=== PATIENT | female | born 1985 ===

== ENCOUNTER 2018-12-18 08:48 | Inpatient (IN) ==
[2018-12-18] MEDS ORDERED: FAMOTIDINE 20 MG/2 ML VIAL IV ONE (09:39)
[2018-12-18] MEDS ORDERED: CITRIC ACID/SODIUM CITRATE 30 ML UDCUP PO ONE (09:39)
[2018-12-18] MEDS ORDERED: ceFAZolin 3,000 MG in SYRINGE 1 EACH IV ONE (09:39)
[2018-12-18] MEDS: LACTATED RINGERS 1,000 ML IV SCH ×3 (09:54→16:12)
[2018-12-18 10:01] LABS: Basophils % 0.1 % (0.0-0.8); Eosinophils % 0.2 % (0.00-10.9); Hematocrit 34.9 VOL% (35.7-47.0); Hemoglobin 11.2 GM/DL (12.0-16.0); Immature Granulocytes % 0.9 %; Immature Granulocytes Absolute 0.09 #; Lymphocytes # 1.1 10*3/uL (1.4-4.0); Lymphocytes % 10.8 % (21.3-54.2); Mean Corpuscular HGB Conc 32.1 GM/DL (32-36); Mean Corpuscular Hemoglobin 28 PG (27-34); Mean Corpuscular Volume 85.5 FL (87-102); Mean Platelet Volume 11.2 FL (9.6-12.0); Monocytes # 0.6 10*3/uL (0.11-0.8); Monocytes % 5.4 % (1.7-12.7); Neutrophils # 8.5 10*3/uL (1.4-7.4); Neutrophils % 82.6 % (38.7-73.9); Platelet Count 179 T/CUMM (130-400); Red Blood Count 4.08 MC/CUMM (3.8-5.5); Red Cell Distribution Width 14.9 % (9.3-17.3); White Blood Count 10.2 T/CUMM (4-12)
[2018-12-18] MEDS ORDERED: OXYTOCIN 10 UNIT/ML VIAL IM ONE (10:10)
[2018-12-18] MEDS ORDERED: OXYTOCIN/LR 30 UNIT/1,000 ML BAG IV ONE (10:10)
[2018-12-18 10:22] LABS: Albumin 2.3 G/DL (3.4-5.0); Bilirubin,Total 0.6 MG/DL (0.2-1.0); Calcium 8.5 MG/DL (8.5-10.1); Osmolality,Calculated 272.7 MOS/KG (273-304); Potassium 3.9 MMOL/L (3.5-5.1); Total Protein 7.1 G/DL (6.4-8.3)
[2018-12-18 11:24] LABS: Cord Arterial Blood HCO3 17.3 MMOL/L
[2018-12-18 11:26] LABS: Cord Venous Blood HCO3 20.8 MMOL/L; Cord Venous Blood PCO2 45.7 MMHG; Cord Venous Blood PO2 38.5 MMHG
[2018-12-18 11:36] LABS: Apearance,Urine Slightly Hazy (Clear); Bacteria,Urine Occasional /HPF (Few); Bilirubin,Urine Negative (Negative); Blood, Urine Negative (Negative); Glucose,Urine (UA) Negative (Negative); Ketones,Urine Negative (Negative); Mucus,Urine Occasional /LPF (Occasional); Nitrite,Urine Negative (Negative); Protein,Urine 30 MG/DL; RBC,Urine 7 /HPF (0-4); Squamous Epithelial Cell,Urine Occasional /HPF (0-10); Urine Color Amber (Yellow); Urine Specific Gravity 1.028 (1.001-1.035); WBC,Urine 1 /HPF (0-6)
[2018-12-18] MEDS ORDERED: RHO(D) IMMUNE GLOBULIN 300 MCG SYRINGE IM ONE (11:36)
[2018-12-18] MEDS ORDERED: ACETAMINOPHEN 325 MG TABLET PO PRN (11:36)
[2018-12-18] MEDS ORDERED: OXYTOCIN/LR 20 UNIT/1,000 ML BAG IV ONE (11:36)
[2018-12-18] MEDS ORDERED: ONDANSETRON 4 MG/2 ML VIAL IV PRN (11:36)
[2018-12-18] MEDS ORDERED: MORPHINE 10 MG/10 ML VIAL ONE (11:39)
[2018-12-18] MEDS ORDERED: PHENYLEPHRINE 1 MG/10 ML SYRINGE IV ONE (11:39)
[2018-12-18] MEDS ORDERED: fentaNYL 100 MCG/2 ML VIAL ONE (11:39)
[2018-12-18] MEDS ORDERED: BUPIVACAINE SPINAL 0.75% 2 ML AMP SPINAL ONE (11:39)
[2018-12-18] MEDS: ceFAZolin 1,000 MG in SYRINGE 1 EACH IV SCH (17:45)
[2018-12-18 19:56] LABS: Basophils % 0.1 % (0.0-0.8); Eosinophils % 0.1 % (0.00-10.9); Hematocrit 32.9 VOL% (35.7-47.0); Hemoglobin 10.7 GM/DL (12.0-16.0); Immature Granulocytes % 0.7 %; Immature Granulocytes Absolute 0.08 #; Lymphocytes # 1.5 10*3/uL (1.4-4.0); Lymphocytes % 13.3 % (21.3-54.2); Mean Corpuscular HGB Conc 32.5 GM/DL (32-36); Mean Corpuscular Hemoglobin 28 PG (27-34); Mean Corpuscular Volume 86.1 FL (87-102); Monocytes # 0.6 10*3/uL (0.11-0.8); Monocytes % 5.7 % (1.7-12.7); Neutrophils # 8.9 10*3/uL (1.4-7.4); Neutrophils % 80.1 % (38.7-73.9); Platelet Count 164 T/CUMM (130-400); Red Blood Count 3.82 MC/CUMM (3.8-5.5); Red Cell Distribution Width 14.8 % (9.3-17.3); White Blood Count 11.1 T/CUMM (4-12)
[2018-12-18] MEDS: DOCUSATE SODIUM 100 MG CAPSULE PO SCH (20:56)
[2018-12-19] MEDS: LACTATED RINGERS 1,000 ML IV SCH (00:10)
[2018-12-19] MEDS: ceFAZolin 1,000 MG in SYRINGE 1 EACH IV SCH (02:27)
[2018-12-19 06:48] LABS: Basophils % 0.1 % (0.0-0.8); Eosinophils % 0.1 % (0.00-10.9); Hematocrit 32.3 VOL% (35.7-47.0); Hemoglobin 10.3 GM/DL (12.0-16.0); Immature Granulocytes % 1.1 %; Immature Granulocytes Absolute 0.11 #; Lymphocytes % 9.3 % (21.3-54.2); Mean Corpuscular HGB Conc 31.9 GM/DL (32-36); Mean Corpuscular Hemoglobin 28 PG (27-34); Mean Corpuscular Volume 86.8 FL (87-102); Mean Platelet Volume 11.4 FL (9.6-12.0); Monocytes # 0.5 10*3/uL (0.11-0.8); Monocytes % 4.5 % (1.7-12.7); Neutrophils # 8.8 10*3/uL (1.4-7.4); Neutrophils % 84.9 % (38.7-73.9); Platelet Count 166 T/CUMM (130-400); Red Blood Count 3.72 MC/CUMM (3.8-5.5); Red Cell Distribution Width 15.1 % (9.3-17.3); White Blood Count 10.3 T/CUMM (4-12)
[2018-12-19] MEDS: METOCLOPRAMIDE 10 MG TABLET PO PRN ×2 (09:30→17:15)
[2018-12-19] MEDS: DOCUSATE SODIUM 100 MG CAPSULE PO SCH ×2 (09:30→19:46)
[2018-12-19] MEDS: MAGNESIUM HYDROXIDE SUSP 30 ML UDCUP PO PRN ×2 (09:30→19:45)
[2018-12-19] MEDS: SIMETHICONE CHEW 80 MG TABLET PO PRN (09:30)
[2018-12-19] MEDS: MULTIVITAMIN (PRENATAL) TABLET PO SCH (09:30)
[2018-12-19] MEDS ORDERED: MEPERIDINE 50 MG/1 ML VIAL IV ONE (13:14)
[2018-12-19] MEDS: IBUPROFEN 800 MG TABLET PO PRN (13:24)
[2018-12-20] MEDS: METOCLOPRAMIDE 10 MG TABLET PO PRN (02:01)
[2018-12-20] MEDS: DOCUSATE SODIUM 100 MG CAPSULE PO SCH ×3 (02:09→20:54)
[2018-12-20] MEDS: MAGNESIUM HYDROXIDE SUSP 30 ML UDCUP PO PRN (08:47)
[2018-12-20] MEDS: SIMETHICONE CHEW 80 MG TABLET PO PRN (08:47)
[2018-12-20] MEDS: MULTIVITAMIN (PRENATAL) TABLET PO SCH (08:47)
[2018-12-20] MEDS ORDERED: BISACODYL 10 MG SUPP RECTAL PRN (08:55)
[2018-12-20] MEDS ORDERED: MAGNESIUM CITRATE 300 ML BOTTLE PO ONE (09:52)
[2018-12-20] MEDS: IBUPROFEN 800 MG TABLET PO PRN ×2 (12:37→20:54)
[2018-12-20] MEDS ORDERED: MEASLES/MUMPS/RUBELLA VACCINE 0.5 ML VIAL SUBCUT ONE (18:57)
[2018-12-21 04:05] VITALS: BP 139/81
[2018-12-21] MEDS: MULTIVITAMIN (PRENATAL) TABLET PO SCH (09:57)
[2018-12-21] MEDS: DOCUSATE SODIUM 100 MG CAPSULE PO SCH (09:57)
[2018-12-21] MEDS: IBUPROFEN 800 MG TABLET PO PRN (13:07)
== END 2018-12-21 13:50 | disposition home or self-care (01) | DRG 785 ==
LOC: N.LDOUT 08:48 → N.LD 08:49 → N.OB 14:45 → N.LD 12-20 19:01
PROVIDERS: ADMIT Obstetrics & Gynecology; ATTEND Obstetrics & Gynecology

== ENCOUNTER 2019-08-19 14:51 | Inpatient (IN) ==
[2019-08-19] MEDS ORDERED: MORPHINE 4 MG/1 ML VIAL IV PRN (17:25)
[2019-08-19] MEDS ORDERED: ONDANSETRON 4 MG/2 ML VIAL IV PRN (17:26)
[2019-08-19] MEDS: ACETAMINOPHEN 325 MG TABLET PO PRN (17:47)
[2019-08-19] MEDS: PIPERACILLIN/TAZOBACTAM 3,375 MG in SODIUM CHLORIDE 0.9% 100 ML IV SCH ×2 (17:50→19:33)
[2019-08-19 18:28] LABS: Calcium 8.2 MG/DL (8.5-10.1); Osmolality,Calculated 264.2 MOS/KG (273-304); Thyroid Stimulating Hormone 0.96 uIU/ml (0.358-3.74)
[2019-08-19 19:25] LABS: Basophils % 0.1 % (0.0-0.8); Hematocrit 32.1 VOL% (35.7-47.0); Hemoglobin 10.7 GM/DL (12.0-16.0); Immature Granulocytes % 0.7 %; Immature Granulocytes Absolute 0.05 #; Lymphocytes # 0.7 10*3/uL (1.4-4.0); Lymphocytes % 9.2 % (21.3-54.2); Mean Corpuscular HGB Conc 33.3 GM/DL (32-36); Mean Corpuscular Volume 88.7 FL (87-102); Mean Platelet Volume 10.8 FL (9.6-12.0); Monocytes % 4.6 % (1.7-12.7); Neutrophils % 85.4 % (38.7-73.9); Platelet Count 104 T/CUMM (130-400); Red Blood Count 3.62 MC/CUMM (3.8-5.5); Red Cell Distribution Width 13.7 % (9.3-17.3); White Blood Count 7.4 T/CUMM (4-12)
[2019-08-19 20:21] LABS: Apearance,Urine CLEAR (Clear); Bilirubin,Urine Negative (Negative); Blood, Urine Negative (Negative); Glucose,Urine (UA) Negative (Negative); Ketones,Urine 80 mg/dL (Negative); Nitrite,Urine Negative (Negative); Protein,Urine 100 MG/DL; RBC,Urine 6 /HPF (0-4); Squamous Epithelial Cell,Urine Occasional /HPF (0-10); Transitional Epi Cells,Urine Occasional /HPF (<1); Urine Color Yellow (Yellow); Urine Specific Gravity 1.039 (1.001-1.035); Urine Urobilinogen < 2.0 EU/DL (0.2-1.0); WBC,Urine 5 /HPF (0-6)
[2019-08-20] MEDS: PIPERACILLIN/TAZOBACTAM 3,375 MG in SODIUM CHLORIDE 0.9% 100 ML IV SCH ×3 (02:37→16:31)
[2019-08-20] MEDS: ACETAMINOPHEN 325 MG TABLET PO PRN ×2 (04:34→13:16)
[2019-08-20 05:15] LABS: Basophils % 0.2 % (0.0-0.8); Hematocrit 34.2 VOL% (35.7-47.0); Hemoglobin 11.2 GM/DL (12.0-16.0); Immature Granulocytes % 0.6 %; Immature Granulocytes Absolute 0.03 #; Lymphocytes # 0.7 10*3/uL (1.4-4.0); Lymphocytes % 12.7 % (21.3-54.2); Mean Corpuscular HGB Conc 32.7 GM/DL (32-36); Mean Corpuscular Volume 88.6 FL (87-102); Mean Platelet Volume 11.2 FL (9.6-12.0); Monocytes % 5.3 % (1.7-12.7); Neutrophils % 81.2 % (38.7-73.9); Platelet Count 112 T/CUMM (130-400); Red Blood Count 3.86 MC/CUMM (3.8-5.5); Red Cell Distribution Width 13.5 % (9.3-17.3); White Blood Count 5.3 T/CUMM (4-12)
[2019-08-20 05:40] LABS: Calcium 8.2 MG/DL (8.5-10.1); Osmolality,Calculated 270.8 MOS/KG (273-304)
[2019-08-21] MEDS: PIPERACILLIN/TAZOBACTAM 3,375 MG in SODIUM CHLORIDE 0.9% 100 ML IV SCH ×3 (01:20→18:29)
[2019-08-21 05:22] LABS: Basophils % 0.2 % (0.0-0.8); Hematocrit 33.5 VOL% (35.7-47.0); Immature Granulocytes % 1.7 %; Immature Granulocytes Absolute 0.07 #; Lymphocytes % 23.9 % (21.3-54.2); Mean Corpuscular HGB Conc 32.8 GM/DL (32-36); Mean Corpuscular Volume 87.2 FL (87-102); Mean Platelet Volume 11.2 FL (9.6-12.0); Monocytes % 10.4 % (1.7-12.7); Neutrophils % 63.8 % (38.7-73.9); Platelet Count 131 T/CUMM (130-400); Red Blood Count 3.84 MC/CUMM (3.8-5.5); Red Cell Distribution Width 13.3 % (9.3-17.3); White Blood Count 4.1 T/CUMM (4-12)
[2019-08-21 05:38] LABS: Calcium 8.2 MG/DL (8.5-10.1); Osmolality,Calculated 270.8 MOS/KG (273-304)
[2019-08-21 05:47] LABS: Hypochromasia 1+; Platelet Estimate Adequate
[2019-08-22] MEDS: PIPERACILLIN/TAZOBACTAM 3,375 MG in SODIUM CHLORIDE 0.9% 100 ML IV SCH ×3 (00:36→17:55)
[2019-08-22] MEDS: ACETAMINOPHEN 325 MG TABLET PO PRN (09:23)
[2019-08-23] MEDS: PIPERACILLIN/TAZOBACTAM 3,375 MG in SODIUM CHLORIDE 0.9% 100 ML IV SCH ×2 (00:56→09:50)
[2019-08-23] MEDS: ACETAMINOPHEN 325 MG TABLET PO PRN (06:49)
[2019-08-23 11:15] VITALS: BP 141/82
[2019-08-23] MEDS ORDERED: CIPROFLOXACIN 500 MG TABLET PO SCH (11:30)
== END 2019-08-23 13:30 | disposition home or self-care (01) | DRG 690 ==
LOC: N.2E 16:32 → SUATTDRO 16:32 → SUPCPDRO 16:32
PROVIDERS: ADMIT Internal Medicine; ATTEND Internal Medicine